=== PATIENT | female | born 1965 | race Caucasian/White ===

== ENCOUNTER 2018-05-09 12:40 | Emergency (ER) | payer OTHER, SELFPAY ==
[2018-05-09 12:49] VITALS: BP 125/98; PULSE 88; RESP 16
--- NOTE | 2018-05-09 13:41 | W.ED.GENAD ---
Discharge Plan Disposition Patient Disposition: HOME Condition: Fair Discharge Details Chief Complaint: Urinary Clinical Impression: UTI (urinary tract infection) Primary Care Provider: Daniel Garcia ED Provider: Mini Suazo Home Meds and New Rx's Prescriptions: New cephalexin [Keflex] 500 mg capsule 500 mg PO BID Qty: 10 RF: 0 No Action atorvastatin 20 mg Tablet 20 mg PO DAILY RF: 0 enalapril maleate 20 mg Tablet 20 mg PO DAILY RF: 0 omeprazole 20 mg Capsule,Delayed Release(Dr/Ec) 20 mg PO DAILY RF: 0 aspirin 81 mg Tablet,Chewable 1 tab PO DAILY RF: 0 duloxetine [Cymbalta] 60 mg Capsule,Delayed Release(Dr/Ec) 60 mg PO DAILY RF: 0 Discharge Instructions Instructions: Urinary Tract Infection in Women (ED) Additional Instructions: Encourage hydration. Take antibiotics as prescribed. Even if symptoms improve, please take the entire course. Take Pyridium as prescribed to help with symptomatic management as needed. If you develop fever/chills, increased back pain, vomiting or other new/worsening symptoms please seek care urgently once again. Please follow-up with primary care in 1 week if symptoms have not completely resolved. Referrals: Daniel Garcia [Primary Care Provider] - Discharge Data Discharge Date/Time-TO BE ENTERED AT DEPARTURE: 05/09/18 14:37 Medical Decision Making Patient presents today with concern for possible UTI. She reports that she woke this morning noting increased frequency and urgency. Is also endorsing discomfort over the area of the bladder. No vaginal discharge. No CVA tenderness on exam. She denies any fevers or chills at home. Appears nontoxic here. Will obtain urinalysis to evaluate. UA significant for large blood, small leukocyte esterace. WBC >50. Patient will be treated for UTI with abx. Encouraged hydration. Advised f/u with PCP in one week if symptoms persist. Advised on new/worsening symptoms wne when to seek care urgently once again. All of her questions and concerns were addresed, she is in agreemetn with this plan. HPI General Mode of arrival: ambulatory. Date/Time Provider Initiated Documentation: 05/09/18 13:36. Limitations to Documentation: no limitations. Information obtained by: patient. HPI Narrative: Patient is a 52-year-old female presenting today with chief complaint of a urinary tract infection. She reports that she awoke this morning with increased urgency and frequency. She denies any dysuria but does report that she feels a pressure particularly over the area of the bladder around the times of urination. States that this is uncomfortable. Also noted a small amount of blood in the urine. Denies any vaginal discharge. Does not have any flank pain. Denies any fevers or chills. Denies any change in her bowel habits. Has not noted any nausea or vomiting. No abdominal pain Related Data Home Medications Medication Instructions Recorded Confirmed aspirin 1 tab PO DAILY 05/09/18 05/09/18 atorvastatin 20 mg PO DAILY 05/09/18 05/09/18 cephalexin [Keflex] 500 mg PO BID #10 cap 05/09/18 duloxetine [Cymbalta] 60 mg PO DAILY 05/09/18 05/09/18 enalapril maleate 20 mg PO DAILY 05/09/18 05/09/18 omeprazole 20 mg PO DAILY 05/09/18 05/09/18 Previous Rx's Medication Instructions Recorded cephalexin [Keflex] 500 mg PO BID #10 cap 05/09/18 Allergies Allergy/AdvReac Type Severity Reaction Status Date / Time No Known Allergies Allergy Unverified 05/09/18 14:30 General Stated Complaint: Urinary INO: 3 Review of Systems Constitutional Reports as per HPI, Denies chills, Denies fever(s) and Denies poor appetite Cardiovascular Denies chest pain Respiratory Denies cough Gastrointestinal Reports as per HPI Genitourinary Reports as per HPI Musculoskeletal Reports back pain Integumentary/Breasts Denies rash [facility] Social History Smoking/Tobacco Use Status: Former Tobacco Use Exam Const General: cooperative, healthy appearing, comfortable, no acute distress, well developed and well groomed Nutritional Appearance: average body habitus and well nourished Orientation: alert and awake Resp Effort & Inspection: normal respiratory effort, able to speak in complete sentences and no respiratory distress Auscultation: clear to auscultation bilaterally Cardio Rate: regular rate Rhythm: regular rhythm Heart Sounds: S1 normal and S2 normal GI Inspection: normal to inspection Palpation: soft, no guarding, not rigid and nontender Back/Spine/Pelvis Back: no CVA tenderness Skin General skin exam: no rashes or lesions noted Lesions: no lesions Rashes: no rashes Neuro General: alert and awake Cognition: normal cognition Speech: speech normal Gait: normal gait Psych Appearance: grossly normal and well kempt Mental Status: mental status grossly normal Speech and Movement: speech and movement normal Course Vital Signs Pulse 88 05/09/18 12:49 Respiratory Rate 16 05/09/18 12:49 Blood Pressure 125/98 H 05/09/18 12:49 Temperature Source Tympanic 05/09/18 12:49 Pulse 88 05/09/18 12:49 Respiratory Rate 16 05/09/18 12:49 Blood Pressure 125/98 H 05/09/18 12:49 Blood Pressure Position Sitting 05/09/18 12:49 Oxygen Delivery Method Room Air 05/09/18 12:49 Oxygen Flow Rate 0 05/09/18 12:49
--- NOTE | 2018-05-09 13:45 | ED.GENADUL_ITS ---
Discharge Plan Disposition Patient Disposition: HOME Condition: Fair Discharge Details Chief Complaint: Urinary Clinical Impression: UTI (urinary tract infection) Primary Care Provider: Daniel Garcia ED Provider: Mini Suazo Home Meds and New Rx's Prescriptions: New cephalexin [Keflex] 500 mg capsule 500 mg PO BID Qty: 10 RF: 0 No Action atorvastatin 20 mg Tablet 20 mg PO DAILY RF: 0 enalapril maleate 20 mg Tablet 20 mg PO DAILY RF: 0 omeprazole 20 mg Capsule,Delayed Release(Dr/Ec) 20 mg PO DAILY RF: 0 aspirin 81 mg Tablet,Chewable 1 tab PO DAILY RF: 0 duloxetine [Cymbalta] 60 mg Capsule,Delayed Release(Dr/Ec) 60 mg PO DAILY RF: 0 Discharge Instructions Instructions: Urinary Tract Infection in Women (ED) Additional Instructions: Encourage hydration. Take antibiotics as prescribed. Even if symptoms improve , please take the entire course. Take Pyridium as prescribed to help with symptomatic management as needed. If you develop fever/chills, increased back pain, vomiting or other new/worsening symptoms please seek care urgently once again. Please follow-up with primary care in 1 week if symptoms have not completely resolved. Referrals: Daniel Garcia [Primary Care Provider] - Discharge Data Discharge Date/Time-TO BE ENTERED AT DEPARTURE: 05/09/18 14:37 Medical Decision Making Patient presents today with concern for possible UTI. She reports that she woke this morning noting increased frequency and urgency. Is also endorsing discomfort over the area of the bladder. No vaginal discharge. No CVA tenderness on exam. She denies any fevers or chills at home. Appears nontoxic here. Will obtain urinalysis to evaluate. UA significant for large blood, small leukocyte esterace. WBC >50. Patient will be treated for UTI with abx. Encouraged hydration. Advised f/u with PCP in one week if symptoms persist. Advised on new/worsening symptoms wne when to seek care urgently once again. All of her questions and concerns were addresed, she is in agreemetn with this plan. HPI General Mode of arrival: ambulatory . Date/Time Provider Initiated Documentation: 05/09/18 13:36 . Limitations to Documentation: no limitations . Information obtained by: patient . HPI Narrative: Patient is a 52-year-old female presenting today with chief complaint of a urinary tract infection. She reports that she awoke this morning with increased urgency and frequency. She denies any dysuria but does report that she feels a pressure particularly over the area of the bladder around the times of urination. States that this is uncomfortable. Also noted a small amount of blood in the urine. Denies any vaginal discharge. Does not have any flank pain. Denies any fevers or chills. Denies any change in her bowel habits. Has not noted any nausea or vomiting. No abdominal pain Related Data Home Medications Medication Instructions Recorded Confirmed aspirin 1 tab PO DAILY 05/09/18 05/09/18 atorvastatin 20 mg PO DAILY 05/09/18 05/09/18 cephalexin [Keflex] 500 mg PO BID #10 cap 05/09/18 duloxetine [Cymbalta] 60 mg PO DAILY 05/09/18 05/09/18 enalapril maleate 20 mg PO DAILY 05/09/18 05/09/18 omeprazole 20 mg PO DAILY 05/09/18 05/09/18 Previous Rx's Medication Instructions Recorded cephalexin [Keflex] 500 mg PO BID #10 cap 05/09/18 Allergies Allergy/AdvReac Type Severity Reaction Status Date / Time No Known Allergies Allergy Unverified 05/09/18 14:30 General Stated Complaint: Urinary INO: 3 Review of Systems Constitutional Reports as per HPI, Denies chills, Denies fever(s) and Denies poor appetite Cardiovascular Denies chest pain Respiratory Denies cough Gastrointestinal Reports as per HPI Genitourinary Reports as per HPI Musculoskeletal Reports back pain Integumentary/Breasts Denies rash [facility] Social History Smoking/Tobacco Use Status: Former Tobacco Use Exam Const General: cooperative, healthy appearing, comfortable, no acute distress, well developed and well groomed Nutritional Appearance: average body habitus and well nourished Orientation: alert and awake Resp Effort & Inspection: normal respiratory effort, able to speak in complete sentences and no respiratory distress Auscultation: clear to auscultation bilaterally Cardio Rate: regular rate Rhythm: regular rhythm Heart Sounds: S1 normal and S2 normal GI Inspection: normal to inspection Palpation: soft, no guarding, not rigid and nontender Back/Spine/Pelvis Back: no CVA tenderness Skin General skin exam: no rashes or lesions noted Lesions: no lesions Rashes: no rashes Neuro General: alert and awake Cognition: normal cognition Speech: speech normal Gait: normal gait Psych Appearance: grossly normal and well kempt Mental Status: mental status grossly normal Speech and Movement: speech and movement normal Course Vital Signs Pulse 88 05/09/18 12:49 Respiratory Rate 16 05/09/18 12:49 Blood Pressure 125/98 H 05/09/18 12:49 Temperature Source Tympanic 05/09/18 12:49 Pulse 88 05/09/18 12:49 Respiratory Rate 16 05/09/18 12:49 Blood Pressure 125/98 H 05/09/18 12:49 Blood Pressure Position Sitting 05/09/18 12:49 Oxygen Delivery Method Room Air 05/09/18 12:49 Oxygen Flow Rate 0 05/09/18 12:49
[2018-05-09 14:03] LABS: Bilirubin Negative (Negative); Blood Large (Negative); Clarity Cloudy; Glucose Negative (Negative); Ketones Trace mg/dL (Negative); Leukocyte Esterase Small (Negative); Nitrite Negative (Negative); pH 8.5 (5-8)
[2018-05-09 14:19] LABS: WBC >50 HPF (0-5)
[2018-05-09 14:20] LABS: C & S Indicated? Yes
[2018-05-09 14:23] LABS: RBC >50 (0-2)
== END 2018-05-09 14:37 | disposition home or self-care (01) ==
LOC: ER 14:42
PROVIDERS: Emergency Provider Physician Assistant; PCP Family Medicine
DX: N39.0 Urinary tract infection, site not specified (principal); B97.89 Other viral agents as the cause of diseases classified elsewhere
CPT/HCPCS: 99283; 81003; 81015; 87086